=== PATIENT | male | born 1985 | race Two or more races ===

== ENCOUNTER 2019-06-08 10:44 | Emergency (ER) | payer MEDICAID, OTHER ==
[~2019-06-08] VITALS: Ht 167.6 cm; Wt 86.2 kg
[2019-06-08] MEDS ORDERED: cloNIDine HCL 0.1 MG TAB PO ONE (11:00)
[2019-06-08 11:49] VITALS: BP 171/114
== END 2019-06-08 12:08 | disposition home or self-care (01) ==
LOC: ER 10:44
DX: S00.81XA Abrasion of other part of head, initial encounter (principal); I16.0 Hypertensive urgency; I10 Essential (primary) hypertension; W19.XXXA Unspecified fall, initial encounter; Y93.89 Activity, other specified; Y92.89 Other specified places as the place of occurrence of the external cause; Y99.8 Other external cause status
CPT/HCPCS: 70450

== ENCOUNTER 2021-04-21 03:19 | Emergency (ER) | payer MEDICAID ==
[~2021-04-21] VITALS: Ht 175.3 cm; Wt 149.7 kg
[2021-04-21 03:23] VITALS: BP 201/132
== END 2021-04-21 03:37 | disposition home or self-care (01) ==
LOC: EDBD 03:19 → ER 03:22
DX: R00.2 Palpitations (principal); V43.52XA Car driver injured in collision with other type car in traffic accident, initial encounter; Y93.89 Activity, other specified; Y92.410 Unspecified street and highway as the place of occurrence of the external cause; Y99.8 Other external cause status

== ENCOUNTER 2025-01-08 07:25 | Inpatient (IN) | payer MEDICAID ==
[~2025-01-08] VITALS: Ht 167.6 cm; Wt 89.5 kg
--- NOTE | 2025-01-08 07:35 | ECG ---
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
--- NOTE | 2025-01-08 07:36 | ED.PDOC ---
HPI (NEURO) HPI Comments 39 year old male PMHx HTN, thyroid disease, CKD presents to the ED via EMS with a chief complaint of seizure onset today (01/08/25). Per EMS, patient was at dialysis, was 1.5 hours in, had 1.9 L taken out, when he experiencing tonic- clonic seizure, witnessed by staff, assisted to the ground. Upon EMS arrival, patient was post-ictal, BG was 137. Upon ED arrival, patient was answering questions. Patient has dialysis on Wednesday, Wednesday, Wednesday, missed last 2 sessions. Patient also states last meth use was yesterday. Denies fever, chills, head injury, nausea, vomiting, diarrhea, abdominal pain, chest pain, shortness of breath. No other symptoms or modifying factors present at this time. Chief Complaint: Seizure Time Seen by MD: 07:30 Primary Care Provider: NONE Reviewed Notes: Medications, Allergies Information Source: Patient, Emergency Med Personnel Mode of Arrival: EMS Severity: Moderate Timing: Minutes Duration: Since onset Prehospital treatment: None Seizure Quality: Tonic-clonic Seizure Location: Generalized Onset: At rest Circumstances: Spontaneous Symptoms: Other History of: Hypertension Modifying factors: Nothing Associated Signs and Symptoms: Other Past Medical History PAST MEDICAL HISTORY: CKF, HTN, Thyroid Surgical History (Other): dialysis shunt Family History Family History: No family hx of Cancer, No family hx of DM, Family hx of heart yvrose Social History Smoker: Cigarettes Alcohol: Occasionally Drugs: Cocaine, Heroin, Marijuana, Methamphetamine Lives In: Home Constitutional: denies: chills, diaphoresis, fatigue, fever, malaise, sweats, weakness, others EENTM: denies: blurred vision, double vision, ear bleeding, ear discharge, ear drainage, ear pain, ear ringing, eye pain, eye redness, hearing loss, mouth pain, mouth swelling, nasal discharge, nose bleeding, nose congestion, nose pain, photophobia, tearing, throat pain, throat swelling, voice changes, others Respiratory: denies: cough, hemoptysis, orthopnea, SOB at rest, shortness of breath, SOB with excertion, stridor, wheezing, others Cardiovascular: denies: chest pain, dizzy spells, diaphoresis, Dyspnea on exertion, edema, irregular heart beat, left arm pain, lightheadedness, palpitations, PND, syncope, others Gastrointestinal: denies: abdomen distended, abdominal pain, blood streaked bowels, constipated, diarrhea, dysphagia, difficulty swallowing, hematemesis, melena, nausea, poor appetite, poor fluid intake, rectal bleeding, rectal pain, vomiting, others Genitourinary: denies: burning, dysuria, flank pain, frequency, hematuria, incontinence, penile discharge, penile sore, pain, testicle pain, testicle swelling, urgency, others Neurological: reports: seizure; denies: dizziness, fainting, headache, left sided numbness, left sided weakness, numbness, paresthesia, pre-existing deficit, right sided numbness, right sided weakness, speech problems, tingling, tremors, weakness, others Musculoskeletal: denies: back pain, gout, joint pain, joint swelling, muscle pain, muscle stiffness, neck pain, others Integumetry: denies: bruises, change in color, change in hair/nails, dryness, laceration, lesions, lumps, rash, wounds, others Allergic/Immunocompromised: denies: Difficulty Healing, Frequent Infections, Hives, Itching, others Hematologic/Lymphatic: denies: anemia, blood clots, easy bleeding, easy bruising, swollen glands, others Endocrine: denies: excessive hunger, excessive sweating, excessive thirst, excessive urination, flushing, intolerance to cold, intolerance to heat, unexplained weight gain, unexplained weight loss, others Psychiatric: denies: anxiety, bipolar disorder, depression, hopeless, panic disorder, schizophrenia, sleepless, suicidal, others All Other Systems: Reviewed and Negative Physical Exam General Appearance: Moderate Distress HEENT: Pale Conjuntivae (L), Pale Conjuntivae (R), Pharynx Normal, TMs Normal Neck: Full Range of Motion, Non-Tender, Normal, Normal Inspection Respiratory: Chest Non-Tender, Lungs Clear, No Accessory Muscle Use, No Respiratory Distress, Normal Breath Sounds Cardiovascular: No Edema, No JVD, No Murmur, No Gallop, Normal Peripheral Pulses, Regular Rate/Rhythm Breast Exam: Deferred Gastrointestinal: No Organomegaly, Non Tender, No Pulsatile Mass, Normal Bowel Sounds, Soft Genitalia: Deferred Pelvic: Deferred Rectal: Deferred Extremities: No calf tenderness, Normal capillary refill, No pedal edema, Other (THE PATIENT HAS A FISTULA TO THE RIGHT UPPER EXTREMITY) Musculoskeletal : Apperance: Normal Neurologic: Alert, 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 Was a procedure done?: No Differential Diagnosis (SZ) Seizure: CVA/TIA, Syncope, Other (NEW ONSET SEIZURE) X-Ray, Labs, Meds, VS Vital Signs Date Time Temp Pulse Resp B/P (MAP) Pulse Ox O2 Delivery O2 Flow Rate FiO2 01/08/25 08:05 97.8 99 21 187/115 (139) 96 97.8 01/08/25 08:05 Room Air* 0 21 01/08/25 08:00 101 01/08/25 07:37 109 01/08/25 07:30 109 01/08/25 07:28 98.9 116 16 175/126 95 98.9 Lab Test 01/08/25 08:16 Range/Units White Blood Count 5.6 4.4-10.8 10^3/uL Red Blood Count 3.28 L 4.5-5.90 10^6/uL Hemoglobin 10.9 L 13.5-17.5 g/dL Hematocrit 30.9 L 41.0-53.0 % Mean Corpuscular Volume 94.3 80.0-100.0 fL Mean Corpuscular Hemoglobin 33.1 H 28.0-32.0 pg Mean Corpuscular Hemoglobin Concent 35.1 32.0-36.0 g/dL Red Cell Distribution Width 13.9 11.8-14.3 % Platelet Count 161 140-450 10^3/uL Mean Platelet Volume 7.6 6.9-10.8 fL Neutrophils (%) (Auto) 83.6 H 37.0-80.0 % Lymphocytes (%) (Auto) 9.1 L 10.0-50.0 % Monocytes (%) (Auto) 5.3 0.0-12.0 % Eosinophils (%) (Auto) 1.2 0.0-7.0 % Basophils (%) (Auto) 0.8 0.0-2.0 % Neutrophils # (Auto) 4.7 1.6-8.6 10 ^3/uL Lymphocytes # (Auto) 0.5 0.4-5.4 10 ^3/uL Monocytes # (Auto) 0.3 0-1.3 10 ^3/uL Eosinophils # (Auto) 0.1 0-0.8 10 ^3/uL Basophils # (Auto) 0 0-0.2 10 ^3/uL Nucleated Red Blood Cells 0.0 % Sodium Level 136 136-145 mmol/L Potassium Level 4.1 3.5-5.1 mmol/L Chloride Level 93 L 98-107 mmol/L Carbon Dioxide Level 30 20-31 mmol/L Anion Gap 13 5-15 Blood Urea Nitrogen 48 H 9-23 mg/dL Creatinine 10.14 *H 0.700-1.30 mg/dL Glomerular Filtration Rate Calc 6 >90 mL/min BUN/Creatinine Ratio 4.7 L 10.0-20.0 Serum Glucose 123 H 74-106 mg/dL Calcium Level 8.0 L 8.7-10.4 mg/dL PROCEDURE(s): HWOCT - HEAD WITHOUT CONTRAST Indeterminate calcifications and soft-tissue swelling in the left parietal soft- tissue. IMPRESSION: No acute intracranial abnormality. Radiation optimization: All CT scans at this facility use at least one of these dose optimization techniques: automated exposure control mA and/or kV adjustment per patient size (includes targeted exams where dose is matched to c linical indication) or iterative reconstruction. HEP-LOCK WAS ESTABLISHED. THE PATIENT HAS SEIZURE PRECAUTIONS PLACED. THE PATIENT HAS NOT HAD A SEIZURE HERE IN THE EMERGENCY DEPARTMENT'S THE PATIENT'S CBC SHOWS ANEMIA WITH A HEMOGLOBIN OF 10.9 AND HEMATOCRIT OF 30.9 THE BUN IS 48 AND THE CREATININE IS 10.14 THE PATIENT'S POTASSIUM IS WITHIN NORMAL RANGE At this time, the patient will be admitted with a diagnosis of new onset seizures as well as ESRD on dialysis Images Reviewed?: Images reviewed and evaluated by me Time of 1ST Reevaluation: 08:00 Reevaluation 1ST: Unchanged Patient Education/Counseling: Diagnosis, Treatment, Prognosis Family Education/Counseling: No Family Present Departure 1 Departure Time of Disposition: 10:22 Impression: Primary Impression: New onset seizure Additional Impressions: Methamphetamine abuse ESRD on dialysis Disposition: 09 ADMITTED INPATIENT Admit to: Tele Condition: Fair Critical Care Note Critical Care Time?: Yes (45 min-critical care time only) Stability Stability form required: Yes Unstable for transfer: Telemetry monitoring (Telemetry monitoring required), ED Physician Assesment (Clinical assesment) Heart Score Heart Score: Heart Score Response (Comments) Value History Slightly Suspicious 0 EKG Normal 0 Age <45 0 Risk Factors No known risk factors 0 Troponin Normal limit 0 Total 0 I personally scribed for AYESHA BEGUM MD ([email or web address]) on 01/08/25 at 07:36. Electronically submitted by Claire Kessler ([email or web address]). I personally scribed for AYESHA BEGUM MD ([email or web address]) on 01/08/25 at 07:37. Electronically submitted by Claire Kessler ([email or web address]). I personally scribed for AYESHA BEGUM MD ([email or web address]) on 01/08/25 at 08:29. Electronically submitted by Claire Kessler ([email or web address]). AYESHA BEGUM MD Jan 08, 2025 07:36
--- NOTE | 2025-01-08 08:23 | DVH ---
EXAM: CT HEAD WITHOUT CONTRAST INDICATION: seizure TECHNIQUE: CT of the head without intravenous contrast. Radiation Dose : 1. Head: CT Dose: CTDI volume is 66.32 mGy. Dose-length product is 1306.58 mGy*cm The dose indicators for CT are the volume Computed Tomography (CT) Dose Index (CTDIvol) and the Dose Length Product (DLP), and are measured in units of mGy and mGy-cm, respectively. These indicators are not patient dose, but values generated from the CT scanner acquisition factors. The report includes radiation exposure data for exposures received during this examination. COMPARISON: None FINDINGS: There is no evidence of acute intracranial hemorrhage, extra-axial collection, mass effect, midline s hift, herniation or hydrocephalus. The ventricles, sulci and cisterns are age appropriate. The martinez-white differentiation is intact. Mild symmetrical atrophy in the bilateral anterior temporal lobe; nonspecific. Mucosal opacification of the paranasal sinuses. Indeterminate calcifications and soft-tissue swelling in the left parietal soft-tissue. IMPRESSION: No acute intracranial abnormality. Radiation optimization: All CT scans at this facility use at least one of these dose optimization jeannie hniques: automated exposure control mA and/or kV adjustment per patient size (includes targeted exam s where dose is matched to clinical indication) or iterative reconstruction.
[2025-01-08 08:29] LABS: Hematocrit 30.9 % (41.0-53.0); Hemoglobin 10.9 g/dL (13.5-17.5); Mean Corpuscular Hemoglobin 33.1 pg (28.0-32.0); Mean Corpuscular Volume 94.3 fL (80.0-100.0); Nucleated Red Blood Cells % 0.0 %
[2025-01-08 08:33] LABS: Potassium 4.1 mmol/L (3.5-5.1)
[2025-01-08 08:35] LABS: Anion Gap 13 (5-15); Carbon Dioxide 30 mmol/L (20-31)
[2025-01-08 08:40] LABS: BUN/Creatinine Ratio 4.7 (10.0-20.0)
[2025-01-08 08:41] LABS: Chloride 93 mmol/L (98-107); Glucose 123 mg/dL (74-106); Sodium 136 mmol/L (136-145)
[2025-01-08 08:42] LABS: Blood Urea Nitrogen 48 mg/dL (9-23); Calcium 8.0 mg/dL (8.7-10.4)
--- NOTE | 2025-01-08 10:41 | DVHHP2 ---
History of Present Illness Reason for Visit: Seizure History of Present Illness The patient is a 39-year-old male with past medical history of hypertension, thyroid disease, and end-stage renal disease on hemodialysis who presented to [facility] ED for evaluation of new onset of seizures activity at dialysis center. Patient had 1.9 L taking out and suddenly experiencing tonic- clonic seizure witnessed by staff, assisted to the ground, so EMS were called. Patient was seen and evaluated in the ED, laboratory data shows WBC 5.6, hemoglobin 10.9, hematocrit 30.9, platelets 161, sodium 136, potassium 4.1, BUN 48, creatinine 10.14, glucose 123, calcium 8.0, blood pressure 187/115, heart rate 98, temperature 97.8 F, O2 saturation 96% on room air. Head CT showed no acute intracranial abnormality. Please see medication orders section in the computer. On my assessment, patient denies chest pain, no headache, dizziness, diaphoresis, shortness of breaths, no abdominal pain, diarrhea, nausea, vomiting, fever, chills. Patient was admitted for further evaluation and medical management. Past Medical History ESRD, HTN, Thyroid Past Surgical History Dialysis shunt Past Social History Patient lives at home, smokes cigarettes, drinks alcohol occasionally, uses cocaine, heroin, marijuana, and methamphetamine. Review of Systems Constitutional: No: Fever, Chills, Sweats, Weakness, Malaise, Other Eyes: No: Pain, Vision change, Conjunctivae inflammation, Eyelid inflammation, Other, Redness ENT: No: Ear pain, Ear discharge, Nose pain, Nose discharge, Nose congestion, Mouth pain, Mouth swelling, Throat pain, Throat swelling, Other Respiratory: No: Cough, Dry, Shortness of breath, SOB with excertion, Wheezing, Hemoptysis, Pleuritic Pain, Sputum, Wheezing, Other Cardiovascular: No: Chest Pain, Palpitations, Orthopnea, Paroxysmal Noc. Dyspnea, Edema, Lt Headedness, Other Gastrointestinal: No: Nausea, Vomiting, Abdominal Pain, Diarrhea, Constipation, Melena, Hematochezia, Other Genitourinary: No Dysuria, No Frequency, No Incontinence, No Hematuria, No Retention; Other (Dialysis shunt right upper) Musculoskeletal: No: other, neck pain, shoulder pain, arm pain, back pain, hand pain, leg pain, foot pain Skin: No: Rash, Lesions, Jaundice, Bruising, Other Neurological: No: Weakness, Numbness, Incoordination, Change in speech, Confusion, Seizures, Other Allergies: Coded Allergies: NO KNOWN ALLERGIES (Unverified , 06/08/19) Medications Current Medications Medications Dose Ordered Sig/Roxie Route Start Time Stop Time Status Last Admin Dose Admin Sevelamer HCl 800 mg TIDWM PO 01/08/25 12:00 UNV Multivit/Ca Carb/ B Cmplx/FA/Prenat 1 tab DAILY PO 01/09/25 10:00 UNV Exam Vital Signs Vital Signs Date Time Temp Pulse Resp B/P (MAP) Pulse Ox O2 Delivery O2 Flow Rate FiO2 01/08/25 08:05 97.8 99 21 187/115 (139) 96 97.8 01/08/25 08:05 Room Air* 0 21 General Appearance: Alert, Oriented X3, Cooperative, No acute distress HEENT: Atraumatic, PERRLA, EOMI, Mucous membr. moist/pink Respiratory: Normal air movement Cardiovascular: Regular rate, Normal S1, Normal S2, No murmurs Abdominal: Normal bowel sounds, Soft, No tenderness, No hepatospenomegaly, No masses Extremities: No clubbing, No cyanosis, No edema, Normal pulses, No tenderness/swelling Skin: No rashes, No breakdown, No significant lesion Neuro: Normal gait, Normal speech, Strength at 5/5 X4 ext, Normal tone, Sensation intact, Cranial nerves 3-12 NL, Reflexes 2+ Psych/Mental Status: Mental status NL, Mood NL Labs/Xrays Labs Test 01/08/25 08:16 Range/Units White Blood Count 5.6 4.4-10.8 10^3/uL Red Blood Count 3.28 L 4.5-5.90 10^6/uL Hemoglobin 10.9 L 13.5-17.5 g/dL Hematocrit 30.9 L 41.0-53.0 % Mean Corpuscular Volume 94.3 80.0-100.0 fL Mean Corpuscular Hemoglobin 33.1 H 28.0-32.0 pg Mean Corpuscular Hemoglobin Concent 35.1 32.0-36.0 g/dL Red Cell Distribution Width 13.9 11.8-14.3 % Platelet Count 161 140-450 10^3/uL Mean Platelet Volume 7.6 6.9-10.8 fL Neutrophils (%) (Auto) 83.6 H 37.0-80.0 % Lymphocytes (%) (Auto) 9.1 L 10.0-50.0 % Monocytes (%) (Auto) 5.3 0.0-12.0 % Eosinophils (%) (Auto) 1.2 0.0-7.0 % Basophils (%) (Auto) 0.8 0.0-2.0 % Neutrophils # (Auto) 4.7 1.6-8.6 10 ^3/uL Lymphocytes # (Auto) 0.5 0.4-5.4 10 ^3/uL Monocytes # (Auto) 0.3 0-1.3 10 ^3/uL Eosinophils # (Auto) 0.1 0-0.8 10 ^3/uL Basophils # (Auto) 0 0-0.2 10 ^3/uL Nucleated Red Blood Cells 0.0 % Sodium Level 136 136-145 mmol/L Potassium Level 4.1 3.5-5.1 mmol/L Chloride Level 93 L 98-107 mmol/L Carbon Dioxide Level 30 20-31 mmol/L Anion Gap 13 5-15 Blood Urea Nitrogen 48 H 9-23 mg/dL Creatinine 10.14 *H 0.700-1.30 mg/dL Glomerular Filtration Rate Calc 6 >90 mL/min BUN/Creatinine Ratio 4.7 L 10.0-20.0 Serum Glucose 123 H 74-106 mg/dL Calcium Level 8.0 L 8.7-10.4 mg/dL PATIENT: EDISON MURRAY ACCT: [id number] UNIT: [id number] : 1985 LOC: ER ROOM / BED: / AGE / SEX: 39 / M ADM STATUS: REG ER SERVICE [id number] ORDERING PHYSICIAN: AYESHA BEGUM MD PROCEDURE(s): HWOCT - HEAD WITHOUT CONTRAST REASON: seizure ORDER NUMBER(s): [id number], ACCESSION NUMBER(s): [id number] EXAM: CT HEAD WITHOUT CONTRAST INDICATION: seizure TECHNIQUE: CT of the head without intravenous contrast. Radiation Dose: 1. Head: CT Dose: CTDI volume is 66.32 mGy. Dose-length product is 1306.58 mGy*cm The dose indicators for CT are the volume Computed Tomography (CT) Dose Index (CTDIvol) and the Dose Length Product (DLP), and are measured in units of mGy and mGy-cm, respectively. These indicators are not patient dose, but values generated from the CT scanner acquisition factors. The report includes radiation exposure data for exposures received during this examination. COMPARISON: None FINDINGS: There is no evidence of acute intracranial hemorrhage, extra-axial collection, mass effect, midline shift, herniation or hydrocephalus. The ventricles, sulci and cisterns are age appropriate. The martinez-white differentiation is intact. Mild symmetrical atrophy in the bilateral anterior temporal lobe; nonspecific. Mucosal opacification of the paranasal sinuses. Indeterminate calcifications and soft-tissue swelling in the left parietal soft- tissue. IMPRESSION: No acute intracranial abnormality. SEPSIS Sepsis Screen Date sepsis recognized/suspect: Jan 08, 2025 Time Sepsis recognized/suspect: 08 Recent Procedure: No On Antibiotic Therapy: No Respiratory Rate >20: Yes Heart Rate >90: No Temp<36 C (96.8 F) or >38.3 C: No SBP <90 or MAP <65 mmHG: No New Acute Mental Status Change: No Is the patient on CPAP, BIPAP,: No Physician Orders Pulse Oximetry (01/08/25 07:33) Blood Pressure (01/08/25 07:33) Drug Screen (01/08/25 07:33) Heplock Iv (01/08/25 07:33) Seizure Precautions (01/08/25 07:33) Test Director (01/08/25 07:33) Head Without Contrast (01/08/25 07:33) * Neurology Consult (01/08/25 10:34) *Dr. Senia Marrufo -Da Eul[place] (01/08/25 10:34) Sevelamer (Renagel) (01/08/25 12:00) B-Complex W/ C & Folic Tablet (Nephro-Vi (01/09/25 10:00) Calcium Acetate Capsule (Phoslo Capsule) (01/08/25 10:45) Calcium Acetate Capsule (Phoslo Capsule) (01/08/25 12:00) Admit (01/08/25 10:34) Allergies (01/08/25 10:34) Code Status (01/08/25 10:34) Renal Standard(2gna,3gk,Lopho) (01/08/25 Lunch) Sodium Chloride Lock (Saline Lock Ns) (01/08/25 14:00) Oxygen Per Hour (01/08/25 10:34) Hydrocodone-Acet 5/325mg Tab (Hall 5/32 (01/08/25 10:45) Ondansetron Hcl (Zofran) (01/08/25 10:45) Docusate Sodium Capsule (Colace Capsule) (01/08/25 10:45) Fall Risk Precautions In Place QSHIFT (01/08/25 10:34) Complete Blood Count (01/09/25 04:00) Comprehensive Metabolic Panel (01/09/25 04:00) Condition: Serious (01/08/25 10:34) Acetaminophen Tablet (Tylenol Tablet) (01/08/25 10:45) Maintain Bed Rest (01/08/25 10:34) Sequential Compression Device (01/08/25 ) Nitroglycerin Sublingual (Ntrostat Subli (01/08/25 10:45) Morphine Sulfate Injection (01/08/25 10:45) Stat Ekg For Chest Pain (01/08/25 10:34) Notify Md Of Changes From Base (01/08/25 10:34) Parking Enforcement Manager For 24 Hours (01/08/25 10:34) Emergency Dysrhythmia Protocol (01/08/25 10:34) Rhythm Strips Once Every Shift (01/08/25 10:34) Oxygen By Nasal Cannula (01/08/25 10:34) Vital Signs Date Time Temp Pulse Resp B/P (MAP) Pulse Ox O2 Delivery O2 Flow Rate FiO2 01/08/25 08:05 97.8 99 21 187/115 (139) 96 97.8 01/08/25 08:05 Room Air* 0 21 01/08/25 08:00 101 01/08/25 07:37 109 01/08/25 07:30 109 01/08/25 07:28 98.9 116 16 175/126 95 98.9 Laboratory Tests Test 01/08/25 08:16 White Blood Count 5.6 10^3/uL (4.4-10.8) Assessment/Plan Assessment/Plan New onset seizure Hypertensive urgency Methamphetamine abuse End-stage renal disease on hemodialysis Plan 1. Admit to telemetry unit 2. Breathing treatment 3. Pain control management 4. Management of fluids and electrolytes 5. Consultation for Neurology/Nephrology 6. Diagnostic tests head CT 7. DVT prophylaxis -on SCDs 8. Repeat labs CBC, CMP in a.m. 9. Continue with current medical management 10. Treatment plan discussed with patient and RN. Patient verbalized understanding. Plan discussed with: Patient, Other (RN) My Orders Orders - DARSHAN NUÑEZ DNP Procedure Category Date Status Time * Neurology Consult CONS 01/08/25 Transmitted 10:34 *Dr. [facility] -Da CONS 01/08/25 Transmitted Eulalia 10:34 Sevelamer (Renagel) PHA 01/08/25 Logged 12:00 B-Complex W/ C & PHA 01/09/25 Logged Folic Tablet 10:00 Calcium Acetate PHA 01/08/25 Logged Capsule (Phoslo 10:45 Calcium Acetate PHA 01/08/25 Transmitted Capsule (Phoslo 12:00 Admit ADMIT 01/08/25 Transmitted 10:34 Allergies OFELIA 01/08/25 In Process 10:34 Code Status CODE 01/08/25 Transmitted 10:34 Renal DIET 01/08/25 Transmitted Standard(2gna,3gk,Lopho) Lunch Sodium Chloride Lock PHA 01/08/25 Transmitted (Saline Lock Ns) 14:00 Oxygen Per Hour RT 01/08/25 Transmitted 10:34 Hydrocodone-Acet PHA 01/08/25 Transmitted 5/325mg Tab (Hall 10:45 Ondansetron Hcl PHA 01/08/25 Transmitted (Zofran) 10:45 Docusate Sodium PHA 01/08/25 Transmitted Capsule (Colace 10:45 Fall Risk Precautions OFELIA 01/08/[address] 10:34 Complete Blood Count LAB 01/09/25 Verified 04:00 Comprehensive LAB 01/09/25 Verified Metabolic Panel 04:00 Condition: Serious OFELIA 01/08/25 In Process 10:34 Acetaminophen Tablet PHA 01/08/25 Transmitted (Tylenol Tablet) 10:45 Maintain Bed Rest OFELIA 01/08/25 In Process 10:34 Sequential OFELIA 01/08/25 In Process Compression Device Nitroglycerin PHA 01/08/25 Transmitted Sublingual (Ntrostat 10:45 Morphine Sulfate PHA 01/08/25 Transmitted Injection 10:45 Stat Ekg For Chest OFELIA 01/08/25 In Process Pain 10:34 Notify Md Of Changes OFELIA 01/08/25 In Process From Base 10:34 Parking Enforcement Manager For OFELIA 01/08/25 In Process 24 Hours 10:34 Emergency Dysrhythmia OFELIA 01/08/25 In Process Protocol 10:34 Rhythm Strips Once OFELIA 01/08/25 In Process Every Shift 10:34 Oxygen By Nasal RT 01/08/25 Transmitted Cannula 10:34 Problem List: (1) New onset seizure (2) Hypertensive urgency (3) Methamphetamine abuse (4) End-stage renal disease on hemodialysis Date of Service: Jan 08, 2025 Billing Provider: DARSHAN NUÑEZ DNP Common Visit Codes: [id number] INP/OBS CARE (HIGH) DARSHAN NUÑEZ DNP Jan 08, 2025 10:41
[2025-01-08] MEDS ORDERED: HYDROcodone-ACET 5/325MG TAB PO PRN ×2 (10:45→11:00)
[2025-01-08] MEDS ORDERED: NITROGLYCERIN 0.4 MG SL TAB SL PRN ×2 (10:45→11:00)
[2025-01-08] MEDS ORDERED: ONDANSETRON HCL 4 MG/2 ML VIAL IV PRN ×2 (10:45→11:00)
[2025-01-08] MEDS ORDERED: DOCUSATE SOD 100 MG CAP PO PRN ×2 (10:45→11:00)
[2025-01-08] MEDS ORDERED: ACETAMINOPHEN 325 MG TAB PO PRN ×2 (10:45→11:00)
[2025-01-08] MEDS ORDERED: CALCIUM ACETATE 667 MG CAP PO ONE (10:45)
[2025-01-08] MEDS ORDERED: MORPHINE SULFATE INJ 2 MG/ml SYRG IV PRN ×2 (10:45→11:00)
[2025-01-08] MEDS ORDERED: SEVELAMER 800 MG TAB PO SCH (12:00)
[2025-01-08] MEDS ORDERED: CALCIUM ACETATE 667 MG CAP PO SCH (12:00)
[2025-01-08] MEDS: CALCIUM ACETATE 667 MG CAP PO ONE (12:22)
[2025-01-08] MEDS: SEVELAMER 800 MG TAB PO SCH (12:23)
--- NOTE | 2025-01-08 13:50 | DVHINCON2 ---
Date of service: Jan 08, 2025 Referring Physician Colleen Reason for Consultation Seizure History of Present Illness Mr. Salamanca is a 39 years old right-handed gentleman with a history of hypertension, end-stage kidney failure on hemodialysis, he was brought to the [facility] on 01/08/2025 with a chief company of seizure activity. At this time, he is alert and fully oriented, he provided the following history He remembers going through hemodialysis with muscle twitching without confusion/ALOC, but the next memory was waking up in the emergency room. According to the ER documentation, the when he was about one point hours in his hemodialysis, he had tonic-clonic activity witnessed by his staff, and the patient woke up after the abnormal activity was over. There was no associated biting or incontinence, the patient has never had similar problems previously Once in 11/2024, the patient has had similar muscle twitching without ALOC He has no history of olfactory hallucination He has no history of traumatic brain injury, intracranial infection or family history of seizure disorder. He denies sleep deprivation or acute medical illness WBC/HB/PLT/MCV, 01/08/2025: 5.6/10.9/161/94.3 BUN/CR, 01/08/2025: 48/10.14 GFR, 01/08/2025: Six TSH, 01/08/25: 0.6 CT head, 01/08/2025: No acute intracranial abnormality Past Medical History Hypertension, chronic kidney failure on hemodialysis Past Surgical History Dialysis shunt Family History He denies major medical problems Social History He smokes tobacco, denies alcohol abuse, he uses street methamphetamine. He is not licensed to drive Allergies: Coded Allergies: NO KNOWN ALLERGIES (Unverified , 06/08/19) Current Medications Current Medications Medications (Trade) Dose Ordered Sig/Roxie Route PRN Reason Start Time Stop Time Status Last Admin Sevelamer HCl (Renagel) 800 mg TIDWM PO 01/08/25 12:00 01/08/25 10:54 DC Multivit/Ca Carb/ B Cmplx/FA/Prenat (Nephro-Daryl Tablet) 1 tab DAILY PO 01/09/25 10:00 01/08/25 10:54 DC Calcium Acetate (Phoslo Capsule) 667 mg TIDWMEALS PO 01/08/25 12:00 01/08/25 10:54 DC Sodium Chloride (Saline Lock Ns) 10 ml Q8HR IV 01/08/25 14:00 01/08/25 10:54 DC Acetaminophen/ Hydrocodone Bitart ([place] 5/325MG Tab) 1 tab Q4HP PRN PO MODERATE PAIN (4-6 PAIN SCALE) 01/08/25 10:45 01/08/25 10:54 DC Ondansetron HCl (Zofran) 4 mg Q4HP PRN IV NAUSEA / VOMITING 01/08/25 10:45 01/08/25 10:54 DC Docusate Sodium (Colace Capsule) 100 mg BIDPRN PRN PO FOR CONSTIPATION 01/08/25 10:45 01/08/25 10:54 DC Acetaminophen (Tylenol Tablet) 650 mg Q6HP PRN PO PAIN SCALE 1-3 OR TEMP>100.4 01/08/25 10:45 01/08/25 10:54 DC Nitroglycerin (Ntrostat Sublingual) 0.4 mg Q5MINP PRN SL FOR CHEST PAIN 01/08/25 10:45 01/08/25 10:54 DC Morphine Sulfate 2 mg Q30M PRN IV FOR CHEST PAIN 01/08/25 10:45 01/08/25 10:54 DC Amlodipine Besylate (Norvasc Tablet) 10 mg DAILY PO 01/09/25 10:00 01/08/25 10:54 DC Clonidine HCl (Catapres Tablet) 0.1 mg Q4HP PRN PO SBP>150 01/08/25 10:45 01/08/25 10:54 DC Carvedilol (Coreg Tablet) 12.5 mg Q12HR PO 01/08/25 22:00 01/08/25 10:54 DC Sodium Chloride (Saline Lock Ns) 10 ml Q8HR IV 01/08/25 14:00 Ondansetron HCl (Zofran) 4 mg Q4HP PRN IV NAUSEA / VOMITING 01/08/25 11:00 Morphine Sulfate 2 mg Q30M PRN IV FOR CHEST PAIN 01/08/25 11:00 Sevelamer HCl (Renagel) 800 mg TIDWM PO 01/08/25 12:00 01/08/25 12:23 Multivit/Ca Carb/ B Cmplx/FA/Prenat (Nephro-Daryl Tablet) 1 tab DAILY PO 01/09/25 10:00 Calcium Acetate (Phoslo Capsule) 667 mg TIDWMEALS PO 01/08/25 18:00 Acetaminophen/ Hydrocodone Bitart ([place] 5/325MG Tab) 1 tab Q4HP PRN PO MODERATE PAIN (4-6 PAIN SCALE) 01/08/25 11:00 Docusate Sodium (Colace Capsule) 100 mg BIDPRN PRN PO FOR CONSTIPATION 01/08/25 11:00 Acetaminophen (Tylenol Tablet) 650 mg Q6HP PRN PO PAIN SCALE 1-3 OR TEMP>100.4 01/08/25 11:00 Nitroglycerin (Ntrostat Sublingual) 0.4 mg Q5MINP PRN SL FOR CHEST PAIN 01/08/25 11:00 Amlodipine Besylate (Norvasc Tablet) 10 mg DAILY PO 01/09/25 10:00 Clonidine HCl (Catapres Tablet) 0.1 mg Q4HP PRN PO SBP>150 01/08/25 11:00 Carvedilol (Coreg Tablet) 12.5 mg Q12HR PO 01/08/25 22:00 Review of Systems As above, the other systems are negative Vital Signs Vital Signs Date Time Temp Pulse Resp B/P (MAP) Pulse Ox O2 Delivery O2 Flow Rate FiO2 01/08/25 12:23 191/120 01/08/25 08:05 97.8 99 21 96 97.8 01/08/25 08:05 Room Air* 0 21 Physical Exam GENERAL EXAM: General: the patient is well developed and nourished. No acute distress. HEENT: Normocephalic, neck is supple, no carotid bruits. No mass. RESPIRATORY: Normal respiratory effort with symmetrical lung expansion. Lungs clear to auscultation. CARDIOVASCULAR: Regular rate and rhythm with no murmurs. S1, S2. ABDOMEN: Soft, nontender, normal bowel sound NEUROLOGICAL: MENTAL STATUS: Awake and alert. Oriented to person, place, time and general circumstances. Able to give personal history SPEECH, LANGUAGE, HIGHER CORTICAL FUNCTION: no aphasia or dysathria. CRANIAL NERVES: #2. Retinal background was uniformly pink in appearance. #3,4,6: Pupils are equal, round and reactive. EOMs full and conjugate. No nystagmus. #5: Facial sensation intact in all three divisions bilaterally. Mandibular strength intact. #7: Facial muscles symmetrical and strength intact. #8: Hearing grossly normal to voice. #9,10: Uvula and soft palate rise in the midline. Swallow and voice are normal. #11: Trapezius and sternomastoid strength intact bilaterally. #12: Tongue midline. No fasciculations or atrophy. SENSATION: Sensation to touch and pinprick is normal. MOTOR: Normal tone in the upper and lower extremity. Normal muscle bulk. No fasciculations. No abnormal movements or posturing. Muscle strength of the major groups in the upper extremities is 5/5. Muscle strength of the major groups in the lower extremities is 5/5. REFLEXES: Deep tendon reflexes are symmetrical. No pathological reflexes. CEREBELLAR/COORDINATION: Finger to nose and heel to rangel are normal bilaterally. GAIT/STATION: deferred Labs/Diagnostic Data Labs Test 01/08/25 08:16 Range/Units White Blood Count 5.6 4.4-10.8 10^3/uL Red Blood Count 3.28 L 4.5-5.90 10^6/uL Hemoglobin 10.9 L 13.5-17.5 g/dL Hematocrit 30.9 L 41.0-53.0 % Mean Corpuscular Volume 94.3 80.0-100.0 fL Mean Corpuscular Hemoglobin 33.1 H 28.0-32.0 pg Mean Corpuscular Hemoglobin Concent 35.1 32.0-36.0 g/dL Red Cell Distribution Width 13.9 11.8-14.3 % Platelet Count 161 140-450 10^3/uL Mean Platelet Volume 7.6 6.9-10.8 fL Neutrophils (%) (Auto) 83.6 H 37.0-80.0 % Lymphocytes (%) (Auto) 9.1 L 10.0-50.0 % Monocytes (%) (Auto) 5.3 0.0-12.0 % Eosinophils (%) (Auto) 1.2 0.0-7.0 % Basophils (%) (Auto) 0.8 0.0-2.0 % Neutrophils # (Auto) 4.7 1.6-8.6 10 ^3/uL Lymphocytes # (Auto) 0.5 0.4-5.4 10 ^3/uL Monocytes # (Auto) 0.3 0-1.3 10 ^3/uL Eosinophils # (Auto) 0.1 0-0.8 10 ^3/uL Basophils # (Auto) 0 0-0.2 10 ^3/uL Nucleated Red Blood Cells 0.0 % Sodium Level 136 136-145 mmol/L Potassium Level 4.1 3.5-5.1 mmol/L Chloride Level 93 L 98-107 mmol/L Carbon Dioxide Level 30 20-31 mmol/L Anion Gap 13 5-15 Blood Urea Nitrogen 48 H 9-23 mg/dL Creatinine 10.14 *H 0.700-1.30 mg/dL Glomerular Filtration Rate Calc 6 >90 mL/min BUN/Creatinine Ratio 4.7 L 10.0-20.0 Serum Glucose 123 H 74-106 mg/dL Calcium Level 8.0 L 8.7-10.4 mg/dL Thyroid Stimulating Hormone (TSH) 0.60 0.55-4.78 uIU/mL Assessment New onset grand mal seizure, etiology unclear Myoclonus jerk, likely related to kidney failure Plan/Recommendation Monitoring Supportive treatment Telemetry EEG MRI head Ativan for seizure breakthrough Seizure preventive treatment is not indicated at this time Seizure related driving restriction discussed Seizure related safety issues discussed Avoid street drug, alcohol More recommendation per clinical course Prognosis: Poor This medical document was created using an electronic medical record system with [employer] computerized dictation system. Although this document has been carefully reviewed, there may still be some phonetic and typographical errors. These areas are purely typographical due to imperfections of the software programs, and do not reflect any compromise in the patient's medical care. Plan discussed with: Patient, Other CARLA MOHR MD Jan 08, 2025 13:50
[2025-01-08] MEDS ORDERED: SODIUM CHLOR 0.9% PF (SALINE LOCK) 10ML VIAL/SYR IV SCH (14:00)
[2025-01-08] MEDS: SODIUM CHLOR 0.9% PF (SALINE LOCK) 10ML VIAL/SYR IV SCH (14:02)
[2025-01-08] MEDS ORDERED: LORazepam 2MG/ML-1ML VIAL IV PRN ×2 (14:30)
--- NOTE | 2025-01-08 16:39 | DVH ---
PROCEDURE: MRI BRAIN HEAD WO CONTRAST Indication: Sz COMPARISON: 01/08/2025 TECHNIQUE: Multiplanar multisequence images of the brain are obtained. FINDINGS: There is no abnormal diffusion restriction. There are moderate periventricular and subcortical white matter T2 and FLAIR hyperintense changes. There is no intracranial hemorrhage. No extra-axial fluid c ollection, mass effect or midline shift. The ventricles are midline and normal in size. The cisterns are patent. Normal intracranial flow voids are preserved. Susceptibility artifact in the left parieta l scalp corresponding to the radiopaque debris/ calcification seen on prior CT. Mastoids demonstrate small bilateral effusions. Ethmoid, right maxillary sinus disease. The visualize d orbits are unremarkable. IMPRESSION: No acute cerebrovascular ischemia. Periventricular and subcortical white matter T2/FLAIR hyperintense changes which can be secondary to demyelinating disease, microvascular ischemic changes, vasculitis, other inflammatory / infectious et iologies. Recommend MRI brain with contrast to evaluate. Paranasal sinus disease.
[2025-01-08] MEDS: CALCIUM ACETATE 667 MG CAP PO SCH (18:16)
--- NOTE | 2025-01-08 20:06 | DVHINCON2 ---
Date of service: Jan 08, [address] Nunez Reason for Consultation ESRD and dialysis management History of Present Illness Lalo Salamanca is a 39-year-old M with a Past Medical History pertinent for Hypertension, ESRD on HD (M/W/F) and Thyroid disease who presented to the [facility] for evaluation of new onset seizures activity at dialysis center. Patient remembers going through hemodialysis with muscle twitching without confusion/ALOC, but the next memory was waking up in the emergency room. 1.9 L was taken out and patient suddenly experienced tonic-clonic seizure witnessed by staff and was assisted to the ground. Patient woke up after the abnormal act ivity was over. No associated biting or incontinence. Patient denies similar problems previously. Reports having similar muscle twitching without ALOC in November. At this time, he is alert and fully oriented. During ED course, labs were remarkable for Hgb 10.9. Platelets 161. Na 136. K 4.1. Creatinine 10.14 with BUN of 48. Calcium 8.0. CT Head reported no acute intracranial abnormality. Patient is under my care outpatient for nephrology and dialysis standpoint. I was asked to consult. Allergies: Coded Allergies: NO KNOWN ALLERGIES (Unverified , 06/08/19) Current Medications Current Medications Medications (Trade) Dose Ordered Sig/Roxie Route PRN Reason Start Time Stop Time Status Last Admin Sevelamer HCl (Renagel) 800 mg TIDWM PO 01/08/25 12:00 01/08/25 10:54 DC Multivit/Ca Carb/ B Cmplx/FA/Prenat (Nephro-Daryl Tablet) 1 tab DAILY PO 01/09/25 10:00 01/08/25 10:54 DC Calcium Acetate (Phoslo Capsule) 667 mg TIDWMEALS PO 01/08/25 12:00 01/08/25 10:54 DC Sodium Chloride (Saline Lock Ns) 10 ml Q8HR IV 01/08/25 14:00 01/08/25 10:54 DC Acetaminophen/ Hydrocodone Bitart ([place] 5/325MG Tab) 1 tab Q4HP PRN PO MODERATE PAIN (4-6 PAIN SCALE) 01/08/25 10:45 01/08/25 10:54 DC Ondansetron HCl (Zofran) 4 mg Q4HP PRN IV NAUSEA / VOMITING 01/08/25 10:45 01/08/25 10:54 DC Docusate Sodium (Colace Capsule) 100 mg BIDPRN PRN PO FOR CONSTIPATION 01/08/25 10:45 01/08/25 10:54 DC Acetaminophen (Tylenol Tablet) 650 mg Q6HP PRN PO PAIN SCALE 1-3 OR TEMP>100.4 01/08/25 10:45 01/08/25 10:54 DC Nitroglycerin (Ntrostat Sublingual) 0.4 mg Q5MINP PRN SL FOR CHEST PAIN 01/08/25 10:45 01/08/25 10:54 DC Morphine Sulfate 2 mg Q30M PRN IV FOR CHEST PAIN 01/08/25 10:45 01/08/25 10:54 DC Amlodipine Besylate (Norvasc Tablet) 10 mg DAILY PO 01/09/25 10:00 01/08/25 10:54 DC Clonidine HCl (Catapres Tablet) 0.1 mg Q4HP PRN PO SBP>150 01/08/25 10:45 01/08/25 10:54 DC Carvedilol (Coreg Tablet) 12.5 mg Q12HR PO 01/08/25 22:00 01/08/25 10:54 DC Sodium Chloride (Saline Lock Ns) 10 ml Q8HR IV 01/08/25 14:00 01/08/25 14:02 Ondansetron HCl (Zofran) 4 mg Q4HP PRN IV NAUSEA / VOMITING 01/08/25 11:00 Morphine Sulfate 2 mg Q30M PRN IV FOR CHEST PAIN 01/08/25 11:00 Sevelamer HCl (Renagel) 800 mg TIDWM PO 01/08/25 12:00 01/08/25 18:15 Multivit/Ca Carb/ B Cmplx/FA/Prenat (Nephro-Daryl Tablet) 1 tab DAILY PO 01/09/25 10:00 Calcium Acetate (Phoslo Capsule) 667 mg TIDWMEALS PO 01/08/25 18:00 01/08/25 18:16 Acetaminophen/ Hydrocodone Bitart ([place] 5/325MG Tab) 1 tab Q4HP PRN PO MODERATE PAIN (4-6 PAIN SCALE) 01/08/25 11:00 Docusate Sodium (Colace Capsule) 100 mg BIDPRN PRN PO FOR CONSTIPATION 01/08/25 11:00 Acetaminophen (Tylenol Tablet) 650 mg Q6HP PRN PO PAIN SCALE 1-3 OR TEMP>100.4 01/08/25 11:00 Nitroglycerin (Ntrostat Sublingual) 0.4 mg Q5MINP PRN SL FOR CHEST PAIN 01/08/25 11:00 Amlodipine Besylate (Norvasc Tablet) 10 mg DAILY PO 01/09/25 10:00 Clonidine HCl (Catapres Tablet) 0.1 mg Q4HP PRN PO SBP>150 01/08/25 11:00 01/08/25 18:16 Carvedilol (Coreg Tablet) 12.5 mg Q12HR PO 01/08/25 22:00 Lorazepam (Ativan Inj) 1 mg ONCE PRN IV MRI 01/08/25 14:30 Lorazepam (Ativan Inj) 1 mg Q5MINP PRN IV SEIZURES 01/08/25 14:30 Review of Systems Constitutional: No: Fever, Chills, Sweats, Weakness, Malaise, Other Respiratory: No: Cough, Dry, Shortness of breath, SOB with excertion, Wheezing, Hemoptysis, Pleuritic Pain, Sputum, Wheezing, Other Cardiovascular: No: Chest Pain, Palpitations, Orthopnea, Paroxysmal Noc. Dyspnea, Edema, Lt Headedness, Other Gastrointestinal: No: Nausea, Vomiting, Abdominal Pain, Diarrhea, Constipation, Melena, Hematochezia, Other Genitourinary: No Dysuria, No Frequency, No Incontinence, No Hematuria, No Retention; Other (Dialysis shunt right upper) Skin: No: Rash, Lesions, Jaundice, Bruising, Other Neurological: Seizures. No: Weakness, Numbness, Incoordination, Change in speech, Confusion Other systems reviewed and negative unless otherwise noted in HPI. H&P Exam Vital Signs/I&O Vital Sign Date Time Temp Pulse Resp B/P (MAP) Pulse Ox O2 Delivery O2 Flow Rate FiO2 01/08/25 18:16 176/113 01/08/25 18:00 83 19 93 01/08/25 08:05 97.8 97.8 01/08/25 08:05 Room Air* 0 21 Physical Exam Vitals and nursing notes reviewed. General Appearance: In no acute distress HEENT: Atraumatic, PERRLA, EOMI, Mucous membr. moist/pink Respiratory: Normal air movement Cardiovascular: Regular rate, Normal S1, Normal S2, No murmurs Abdominal: Normal bowel sounds, Soft, No tenderness, No hepatospenomegaly, No masses Extremities: No clubbing, No cyanosis, No edema, Normal pulses, No tenderness/swelling Skin: No rashes, No breakdown, No significant lesion Neuro: Alert, Oriented X3, Normal speech, Cranial nerves 3-12 NL, Reflexes 2+ Psych/Mental Status: Mental status NL, Mood NL Labs/Diagnostic Data Labs/Diagnostic Data Laboratory Tests Test 01/08/25 08:16 Range/Units White Blood Count 5.6 4.4-10.8 10^3/uL Red Blood Count 3.28 L 4.5-5.90 10^6/uL Hemoglobin 10.9 L 13.5-17.5 g/dL Hematocrit 30.9 L 41.0-53.0 % Mean Corpuscular Volume 94.3 80.0-100.0 fL Mean Corpuscular Hemoglobin 33.1 H 28.0-32.0 pg Mean Corpuscular Hemoglobin Concent 35.1 32.0-36.0 g/dL Red Cell Distribution Width 13.9 11.8-14.3 % Platelet Count 161 140-450 10^3/uL Mean Platelet Volume 7.6 6.9-10.8 fL Neutrophils (%) (Auto) 83.6 H 37.0-80.0 % Lymphocytes (%) (Auto) 9.1 L 10.0-50.0 % Monocytes (%) (Auto) 5.3 0.0-12.0 % Eosinophils (%) (Auto) 1.2 0.0-7.0 % Basophils (%) (Auto) 0.8 0.0-2.0 % Neutrophils # (Auto) 4.7 1.6-8.6 10 ^3/uL Lymphocytes # (Auto) 0.5 0.4-5.4 10 ^3/uL Monocytes # (Auto) 0.3 0-1.3 10 ^3/uL Eosinophils # (Auto) 0.1 0-0.8 10 ^3/uL Basophils # (Auto) 0 0-0.2 10 ^3/uL Nucleated Red Blood Cells 0.0 % Sodium Level 136 136-145 mmol/L Potassium Level 4.1 3.5-5.1 mmol/L Chloride Level 93 L 98-107 mmol/L Carbon Dioxide Level 30 20-31 mmol/L Anion Gap 13 5-15 Blood Urea Nitrogen 48 H 9-23 mg/dL Creatinine 10.14 *H 0.700-1.30 mg/dL Glomerular Filtration Rate Calc 6 >90 mL/min BUN/Creatinine Ratio 4.7 L 10.0-20.0 Serum Glucose 123 H 74-106 mg/dL Calcium Level 8.0 L 8.7-10.4 mg/dL Thyroid Stimulating Hormone (TSH) 0.60 0.55-4.78 uIU/mL Assessment New onset seizure Hypertensive urgency Methamphetamine abuse End-stage renal disease on hemodialysis Plan/Recommendation Agreement with your ongoing assessment and plan of care. Supportive treatment. Neurology consulted. Schedule dialysis tomorrow. Electrolyte replacement prn. Home medications resumed. Renal diet. Avoid illicit drugs, alcohol. Additional plan as per the hospital course. Plan discussed with: Patient, Other (RN) RALETTE ALDANA DO Jan 08, 2025 20:06
[2025-01-08 20:41] VITALS: PULSE 85; RESP 13; O2SAT 94
[2025-01-08] MEDS: CARVEDILOL 12.5 MG TAB PO SCH (21:41)
[2025-01-08] MEDS ORDERED: CARVEDILOL 12.5 MG TAB PO SCH (22:00)
[2025-01-08] MEDS: hydrALAZINE HCL 20 MG/ML VL IV ONE (22:42)
[2025-01-09 05:46] LABS: Alanine Aminotransferase 12 U/L (7-40); Albumin 4.0 g/dL (3.2-4.8); Alkaline Phosphatase 54 U/L (46-116); Anion Gap 15 (5-15); BUN/Creatinine Ratio 4.7 (10.0-20.0); Carbon Dioxide 28 mmol/L (20-31); Glucose 80 mg/dL (74-106); Sodium 137 mmol/L (136-145); Total Protein 6.9 g/dL (5.7-8.2)
[2025-01-09 05:47] LABS: Bilirubin, Total 0.5 mg/dL (0.2-1.0)
[2025-01-09 05:50] LABS: Hematocrit 31.7 % (41.0-53.0); Hemoglobin 11.1 g/dL (13.5-17.5); Mean Corpuscular Hemoglobin 33.4 pg (28.0-32.0); Mean Corpuscular Volume 95.2 fL (80.0-100.0); Nucleated Red Blood Cells % 0.0 %
[2025-01-09 05:55] LABS: Blood Urea Nitrogen 64 mg/dL (9-23); Calcium 7.5 mg/dL (8.7-10.4); Chloride 94 mmol/L (98-107)
[2025-01-09 05:57] LABS: Potassium 5.6 mmol/L (3.5-5.1)
[2025-01-09 08:00] VITALS: PULSE 85; PULSE 89; RESP 13; RESP 15; O2SAT 94; O2SAT 96
--- NOTE | 2025-01-09 08:49 | DVHPN2 ---
Progress Note - Dictate Date Seen: Jan 09, 2025 Medical Necessity Reason Pt with a Central, PICC or Fol: No Subjective Mr. Salamanca is a 39 years old right-handed gentleman with a history of hypertension, end-stage kidney failure on hemodialysis, he was brought to the [facility] on 01/08/2025 with a chief company of seizure activity. I have seen and examined the patient, discussed with his nurse, he is doing fine, alert and fully oriented, no new complaints No seizure activity overnight He is to have hemodialysis today WBC/HB/PLT/MCV, 01/08/2025: 5.6/10.9/161/94.3 BUN/CR, 01/08/2025: 48/10.14 GFR, 01/08/2025: Six TSH, 01/08/25: 0.6 CT head, 01/08/2025: No acute intracranial abnormality MRI head, 01/08/2025: No acute cerebrovascular ischemia. Periventricular and subcortical white matter T2/FLAIR hyperintense changes which can be secondary to demyelinating disease, microvascular ischemic changes, vasculitis, other inflammatory / infectious etiologies. Recommend MRI brain with contrast to evaluate. Paranasal sinus disease. vital signs Vital Sign Date Time Temp Pulse Resp B/P (MAP) Pulse Ox O2 Delivery O2 Flow Rate FiO2 01/09/25 08:00 98.9 89 15 152/103 (119) 96 98.9 01/08/25 20:41 Room Air* 0 21 medications Current Medications Medications Dose Ordered Sig/Roxie Route Start Time Stop Time Status Last Admin Dose Admin Sodium Chloride 10 ml Q8HR IV 01/08/25 14:00 01/09/25 05:22 10 ML Ondansetron HCl 4 mg Q4HP PRN IV 01/08/25 11:00 Morphine Sulfate 2 mg Q30M PRN IV 01/08/25 11:00 Sevelamer HCl 800 mg TIDWM PO 01/08/25 12:00 01/09/25 08:24 800 MG Multivit/Ca Carb/ B Cmplx/FA/Prenat 1 tab DAILY PO 01/09/25 10:00 Calcium Acetate 667 mg TIDWMEALS PO 01/08/25 18:00 01/09/25 08:24 667 MG Acetaminophen/ Hydrocodone Bitart 1 tab Q4HP PRN PO 01/08/25 11:00 Docusate Sodium 100 mg BIDPRN PRN PO 01/08/25 11:00 Acetaminophen 650 mg Q6HP PRN PO 01/08/25 11:00 Nitroglycerin 0.4 mg Q5MINP PRN SL 01/08/25 11:00 Amlodipine Besylate 10 mg DAILY PO 01/09/25 10:00 Clonidine HCl 0.1 mg Q4HP PRN PO 01/08/25 11:00 01/08/25 18:16 0.1 MG Carvedilol 12.5 mg Q12HR PO 01/08/25 22:00 01/08/25 21:41 12.5 MG Lorazepam 1 mg ONCE PRN IV 01/08/25 14:30 Lorazepam 1 mg Q5MINP PRN IV 01/08/25 14:30 objective General: the patient is well developed and nourished. No acute distress. MENTAL STATUS: Subjective SPEECH, LANGUAGE, HIGHER CORTICAL FUNCTION: no aphasia or dysathria. CRANIAL NERVES: Pupils are equal, round and reactive. EOMs full and conjugate. No nystagmus. Facial sensation intact in all three divisions bilaterally. Mandibular strength intact. Facial muscles symmetrical and strength intact. Tongue midline. No fasciculations or atrophy. SENSATION: Sensation to touch and pinprick is normal. MOTOR: Normal tone in the upper and lower extremity. Normal muscle bulk. No fasciculations. No abnormal movements or posturing. Muscle strength of the major groups in the extremities is 5/5. REFLEXES: Deep tendon reflexes are symmetrical. No pathological reflexes. CEREBELLAR/COORDINATION: Finger to nose and heel to rangel are normal bilaterally. GAIT/STATION: deferred laboratory and microbiology Laboratory Tests 01/09/25 05:00 Test 01/09/25 05:00 Range/Units Serum Glucose 80 74-106 mg/dL Problem List New onset grand mal seizure, etiology unclear Myoclonus jerk, likely related to kidney failure Assessment/Plan Monitoring Supportive treatment Telemetry EEG, okay as outpatient Ativan for seizure breakthrough Seizure preventive treatment is not indicated at this time Seizure related driving restriction discussed Seizure related safety issues discussed Avoid street drug, alcohol Okay to discharge home from neurologic point of view More recommendation per clinical course This medical document was created using an electronic medical record system with [employer] dictation system. Although this document has been carefully reviewed, there may still be some phonetic and typographical errors. These areas are purely typographical due to imperfections of the software programs, and do not reflect any compromise in the patient's medical care. Prognosis poor Plan discussed with: Patient, Other CARLA MOHR MD Jan 09, 2025 08:49
[2025-01-09] MEDS ORDERED: B-COMPLEX W/ C & FOLIC ACID(NEPHROVITE TAB) PO SCH (10:00)
[2025-01-09] MEDS: B-COMPLEX W/ C & FOLIC ACID(NEPHROVITE TAB) PO SCH (10:02)
[2025-01-09] MEDS ORDERED: SODIUM CHL 0.9% 1000 ML BAG XX ONE (18:15)
--- NOTE | 2025-01-09 18:37 | DVHPN2 ---
Subjective 39-year-old male with a known history of end-stage renal disease on hemodialysis, hypertension initially present with the hospital with seizure-like activities found to have possibly new onset of grand mal seizure/myoclonic jerks. Changes from previous H/P or p: No Changes Eyes: No Pain, No Vision change, No Conjunctivae inflammation, No Eyelid inflammation, No Other, No Redness ENT: No Ear pain, No Ear discharge, No Nose pain, No Nose discharge, No Nose congestion, No Mouth pain, No Mouth swelling, No Throat pain, No Throat swelling, No Other Cardiovascular: No Chest Pain, No Palpitations, No Orthopnea, No Paroxysmal Noc. Dyspnea, No Edema, No Lt Headedness, No Other Respiratory: No Cough, No Dry, No Shortness of breath, No SOB with excertion, No Wheezing, No Hemoptysis, No Pleuritic Pain, No Sputum, No Other Gastrointestinal: No Nausea, No Vomiting, No Abdominal Pain, No Diarrhea, No Constipation, No Melena, No Hematochezia, No Other Genitourinary: No Dysuria, No Frequency, No Incontinence, No Hematuria, No Retention; Other (Dialysis shunt right upper) Musculoskeletal: No other, No neck pain, No shoulder pain, No arm pain, No back pain, No hand pain, No leg pain, No foot pain Skin: No Rash, No Lesions, No Jaundice, No Bruising, No Other Objective Vitals Vital Signs Date Time Temp Pulse Resp B/P (MAP) Pulse Ox O2 Delivery O2 Flow Rate FiO2 01/09/25 15:40 84 12 167/99 (121) 95 01/09/25 08:00 98.9 98.9 01/09/25 08:00 Room Air* 0 21 Exam HEENT pupils are reactive Neck is supple CV is S1-S2 regular rate and rhythm Respiratory bilateral clear. 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 Medications Current Medications Medications Dose Ordered Sig/Roxie Route Start Time Stop Time Status Last Admin Dose Admin Sodium Chloride 10 ml Q8HR IV 01/08/25 14:00 01/09/25 14:00 10 ML Ondansetron HCl 4 mg Q4HP PRN IV 01/08/25 11:00 Morphine Sulfate 2 mg Q30M PRN IV 01/08/25 11:00 Sevelamer HCl 800 mg TIDWM PO 01/08/25 12:00 01/09/25 12:24 800 MG Multivit/Ca Carb/ B Cmplx/FA/Prenat 1 tab DAILY PO 01/09/25 10:00 01/09/25 10:02 1 TAB Calcium Acetate 667 mg TIDWMEALS PO 01/08/25 18:00 01/09/25 12:24 667 MG Acetaminophen/ Hydrocodone Bitart 1 tab Q4HP PRN PO 01/08/25 11:00 Docusate Sodium 100 mg BIDPRN PRN PO 01/08/25 11:00 Acetaminophen 650 mg Q6HP PRN PO 01/08/25 11:00 Nitroglycerin 0.4 mg Q5MINP PRN SL 01/08/25 11:00 Amlodipine Besylate 10 mg DAILY PO 01/09/25 10:00 01/09/25 10:05 10 MG Clonidine HCl 0.1 mg Q4HP PRN PO 01/08/25 11:00 01/08/25 18:16 0.1 MG Carvedilol 12.5 mg Q12HR PO 01/08/25 22:00 01/09/25 10:04 12.5 MG Lorazepam 1 mg ONCE PRN IV 01/08/25 14:30 Lorazepam 1 mg Q5MINP PRN IV 01/08/25 14:30 Laboratory Results Laboratory Tests 01/09/25 05:00 Chemistry Test 01/09/25 05:00 Albumin 4.0 g/dL (3.2-4.8) Calcium Level 7.5 mg/dL (8.7-10.4) L Total Protein 6.9 g/dL (5.7-8.2) LFT Test 01/09/25 05:00 Alanine Aminotransferase (ALT) 12 U/L (7-40) Alkaline Phosphatase 54 U/L (46-116) Aspartate Amino Transferase (AST) 13 U/L (13-40) Total Bilirubin 0.5 mg/dL (0.2-1.0) Assessment/Plan Assessment/Plan 39-year-old male with a known history of end-stage renal disease on hemodialysis, hypertension in his has been with the hospital with seizure-like activities found to have 1. Grand mal seizures 2. Myoclonic jerks 3. Hyperkalemia 4. End-stage renal disease on hemodialysis 5. Hypertension -hemodialysis per renal nephrology consultation, neurology consultation. Plan discussed with: Patient Date of Service: Jan 09, 2025 Billing Provider: DEANNE PATEL MD Common Visit Codes: [id number] INP/OBS CARE(HIGH) DEANNE PATEL MD Jan 09, 2025 18:37
--- NOTE | 2025-01-09 19:02 | DVHPN2 ---
Progress Note - Dictate Date Seen: Jan 09, 2025 Medical Necessity Reason Pt with a Central, PICC or Fol: No Subjective Patient was seen and evaluated in follow up. No acute events overnight. Patient denies any complaints. No further seizure activity noted. Scheduled for dialysis today. vital signs Vital Sign Date Time Temp Pulse Resp B/P (MAP) Pulse Ox O2 Delivery O2 Flow Rate FiO2 01/09/25 15:40 84 12 167/99 (121) 95 01/09/25 08:00 98.9 98.9 01/09/25 08:00 Room Air* 0 21 medications Current Medications Medications Dose Ordered Sig/Roxie Route Start Time Stop Time Status Last Admin Dose Admin Sodium Chloride 10 ml Q8HR IV 01/08/25 14:00 01/09/25 14:00 10 ML Ondansetron HCl 4 mg Q4HP PRN IV 01/08/25 11:00 Morphine Sulfate 2 mg Q30M PRN IV 01/08/25 11:00 Sevelamer HCl 800 mg TIDWM PO 01/08/25 12:00 01/09/25 12:24 800 MG Multivit/Ca Carb/ B Cmplx/FA/Prenat 1 tab DAILY PO 01/09/25 10:00 01/09/25 10:02 1 TAB Calcium Acetate 667 mg TIDWMEALS PO 01/08/25 18:00 01/09/25 12:24 667 MG Acetaminophen/ Hydrocodone Bitart 1 tab Q4HP PRN PO 01/08/25 11:00 Docusate Sodium 100 mg BIDPRN PRN PO 01/08/25 11:00 Acetaminophen 650 mg Q6HP PRN PO 01/08/25 11:00 Nitroglycerin 0.4 mg Q5MINP PRN SL 01/08/25 11:00 Amlodipine Besylate 10 mg DAILY PO 01/09/25 10:00 01/09/25 10:05 10 MG Clonidine HCl 0.1 mg Q4HP PRN PO 01/08/25 11:00 01/08/25 18:16 0.1 MG Carvedilol 12.5 mg Q12HR PO 01/08/25 22:00 01/09/25 10:04 12.5 MG Lorazepam 1 mg ONCE PRN IV 01/08/25 14:30 Lorazepam 1 mg Q5MINP PRN IV 01/08/25 14:30 objective Vitals and nursing notes reviewed. General Appearance: In no acute distress HEENT: Atraumatic, PERRLA, EOMI, Mucous membr. moist/pink Respiratory: Normal air movement Cardiovascular: Regular rate, Normal S1, Normal S2, No murmurs Abdominal: Normal bowel sounds, Soft, No tenderness, No hepatospenomegaly, No masses Extremities: No clubbing, No cyanosis, No edema, Normal pulses, No tenderness/swelling Skin: No rashes, No breakdown, No significant lesion Neuro: Alert, Oriented X3, Normal speech, Cranial nerves 3-12 NL, Reflexes 2+ Psych/Mental Status: Mental status NL, Mood NL laboratory and microbiology Laboratory Tests 01/09/25 05:00 Test 01/09/25 05:00 Range/Units Serum Glucose 80 74-106 mg/dL Problem List New onset seizure Hypertensive urgency Methamphetamine abuse End-stage renal disease on hemodialysis Assessment/Plan Agree with current supportive medical care. HD- 01/09- UF 2 L as tolerated. Electrolyte replacement prn. Renal diet. Avoid illicit drugs, alcohol. Home medications resumed. Additional plan as per the hospital course. Plan discussed with: Patient, Other ARLETTE ALDANA DO Jan 09, 2025 19:02
[2025-01-09 19:40] VITALS: PULSE 86; RESP 13; O2SAT 97
[2025-01-09 21:17] LABS: Amphetamine Screen, Urine Neg (NEGATIVE); Barbiturate Scree,Urine Neg (NEGATIVE); Benzodiazephine Screen, Urine Neg (NEGATIVE); Cannabinoid Screen, Urine Neg (NEGATIVE); Cocaine Screen, Urine Neg (NEGATIVE); Opiate Scree,Urine Neg (NEGATIVE); Phencyclidine Screen, Urine Neg (NEGATIVE)
[2025-01-09 22:05] VITALS: PULSE 83; RESP 19; O2SAT 99
[2025-01-09] MEDS ORDERED: LISI20TA56 PO (22:12)
[2025-01-09] MEDS ORDERED: SODI10PA PO (22:12)
[2025-01-09] MEDS ORDERED: NIFE90TA75 PO (22:12)
--- NOTE | 2025-01-09 22:48 | DVHEEG2 ---
Neurology EEG Procedural Note Procedural Note EXAM DATE: 01/09/2025 REFERRING DOCTOR: Dr. Mohr TECHNIQUE: Eighteen channels of EEG, 2 channels of EOG, and 1 channel of EKG were recorded using the International 10/20 system. CLINICAL DATA: The patient was referred for an EEG evaluation for the evidence of seizure disorder. MEDICATIONS: See the chart BACKGROUND ACTIVITY: He is asleep most of the recording, during brief arousals, the background activity consisted of fairly regulated 8-9 Hz rhythmic waveforms, symmetrically distributed over both posterior quadrants and was reactive to eye opening. Was small amount of sharply contoured waveforms over both hemispheres with a left-sided more affected ACTIVATION: Hyperventilation: Not done Photic Stimulation: Not done Sleep: Noticed IMPRESSION: This is a normal EEG. No focal, lateralized, or epileptiform features are noted. If clinically indicated to rule out a seizure disorder, recommend repeat EEG with sleep deprivation. The above described sharply contoured waveform a not unequivocally considered epileptiform in nature The EKG channel showed a regular heart rate of 80 per minute [place] [address]. CARLA MOHR MD Jan 09, 2025 22:48
[2025-01-10] VITALS (10 sets, daily range): BP systolic 148–176; BP diastolic 98–124; PULSE 73–92; RESP 16–19; TEMP 36.9; O2SAT 94–100
--- NOTE | 2025-01-10 10:36 | DVHPN2 ---
Progress Note - Dictate Date Seen: Jan 10, 2025 Medical Necessity Reason Pt with a Central, PICC or Fol: No Subjective Mr. Salamanca is a 39 years old right-handed gentleman with a history of hypertension, end-stage kidney failure on hemodialysis, he was brought to the [facility] on 01/08/2025 with a chief company of seizure activity. I have seen and examined the patient, discussed with his nurse, he is doing fine, alert and fully oriented, no new seizure/new complaints WBC/HB/PLT/MCV, 01/08/2025: 5.6/10.9/161/94.3 BUN/CR, 01/08/2025: 48/10.14 GFR, 01/08/2025: 6 TSH, 01/08/25: 0.6 EEG, 01/09/2025: Unremarkable CT head, 01/08/2025: No acute intracranial abnormality MRI head, 01/08/2025: No acute cerebrovascular ischemia. Periventricular and subcortical white matter T2/FLAIR hyperintense changes which can be secondary to demyelinating disease, microvascular ischemic changes, vasculitis, other inflammatory / infectious etiologies. Recommend MRI brain with contrast to evaluate. Paranasal sinus disease. vital signs Vital Sign Date Time Temp Pulse Resp B/P (MAP) Pulse Ox O2 Delivery O2 Flow Rate FiO2 01/10/25 09:30 98.7 73 16 176/124 (141) 100 98.7 01/10/25 08:08 Room Air* 0 21 Total Intake and Output 01/09/25 01/09/25 01/10/25 14:59 22:59 06:59 Intake Total 650 ml Output Total 425 ml Balance -425 ml 650 ml medications Current Medications Medications Dose Ordered Sig/Roxie Route Start Time Stop Time Status Last Admin Dose Admin Sodium Chloride 10 ml Q8HR IV 01/08/25 14:00 01/10/25 06:12 10 ML Ondansetron HCl 4 mg Q4HP PRN IV 01/08/25 11:00 Morphine Sulfate 2 mg Q30M PRN IV 01/08/25 11:00 Sevelamer HCl 800 mg TIDWM PO 01/08/25 12:00 01/10/25 08:19 800 MG Multivit/Ca Carb/ B Cmplx/FA/Prenat 1 tab DAILY PO 01/09/25 10:00 01/10/25 09:18 1 TAB Calcium Acetate 667 mg TIDWMEALS PO 01/08/25 18:00 01/10/25 08:19 667 MG Acetaminophen/ Hydrocodone Bitart 1 tab Q4HP PRN PO 01/08/25 11:00 Docusate Sodium 100 mg BIDPRN PRN PO 01/08/25 11:00 Acetaminophen 650 mg Q6HP PRN PO 01/08/25 11:00 Nitroglycerin 0.4 mg Q5MINP PRN SL 01/08/25 11:00 Amlodipine Besylate 10 mg DAILY PO 01/09/25 10:00 01/10/25 09:18 10 MG Clonidine HCl 0.1 mg Q4HP PRN PO 01/08/25 11:00 01/10/25 06:12 0.1 MG Carvedilol 12.5 mg Q12HR PO 01/08/25 22:00 01/10/25 09:19 12.5 MG Lorazepam 1 mg ONCE PRN IV 01/08/25 14:30 Lorazepam 1 mg Q5MINP PRN IV 01/08/25 14:30 objective General: the patient is well developed and nourished. No acute distress. MENTAL STATUS: Subjective SPEECH, LANGUAGE, HIGHER CORTICAL FUNCTION: no aphasia or dysathria. CRANIAL NERVES: Pupils are equal, round and reactive. EOMs full and conjugate. No nystagmus. Facial sensation intact in all three divisions bilaterally. Mandibular strength intact. Facial muscles symmetrical and strength intact. Tongue midline. No fasciculations or atrophy. SENSATION: Sensation to touch and pinprick is normal. MOTOR: Normal tone in the upper and lower extremity. Normal muscle bulk. No fasciculations. No abnormal movements or posturing. Muscle strength of the major groups in the extremities is 5/5. REFLEXES: Deep tendon reflexes are symmetrical. No pathological reflexes. CEREBELLAR/COORDINATION: Finger to nose and heel to rangel are normal bilaterally. GAIT/STATION: deferred laboratory and microbiology Laboratory Tests 01/09/25 05:00 Test 01/09/25 05:00 Range/Units Serum Glucose 80 74-106 mg/dL Problem List New onset grand mal seizure, etiology unclear Myoclonus jerk, likely related to kidney failure Assessment/Plan Monitoring Supportive treatment Telemetry Ativan for seizure breakthrough Seizure preventive treatment is not indicated at this time Seizure related driving restriction discussed Seizure related safety issues discussed Avoid street drug, alcohol Okay to discharge home from neurologic point of view More recommendation per clinical course This medical document was created using an electronic medical record system with [employer] dictation system. Although this document has been carefully reviewed, there may still be some phonetic and typographical errors. These areas are purely typographical due to imperfections of the software programs, and do not reflect any compromise in the patient's medical care. Prognosis poor Plan discussed with: Patient, Other CARLA MOHR MD Jan 10, 2025 10:36
[2025-01-10 15:45] LABS: Chloride 98 mmol/L (98-107); Sodium 139 mmol/L (136-145)
[2025-01-10 15:46] LABS: Anion Gap 11 (5-15); Carbon Dioxide 30 mmol/L (20-31)
[2025-01-10 15:51] LABS: BUN/Creatinine Ratio 5.8 (10.0-20.0)
[2025-01-10 15:55] LABS: Blood Urea Nitrogen 67 mg/dL (9-23); Calcium 7.8 mg/dL (8.7-10.4); Glucose 120 mg/dL (74-106)
[2025-01-10 15:57] LABS: Potassium 5.6 mmol/L (3.5-5.1)
[2025-01-10] MEDS: SODIUM ZIRCONIUM CYCL 10 GM PAK PO ONE (16:24)
[2025-01-10] MEDS ORDERED: CARV-216 PO (16:38)
--- NOTE | 2025-01-10 16:42 | DVHDS2 ---
Discharge Summary Date of Admission Jan 08, 2025 at 10:34 Date of Discharge: Jan 10, 2025 Labs/Diagnostic Data: Laboratory Results Test 01/10/25 15:29 01/09/25 19:58 01/09/25 05:00 01/08/25 08:16 Sodium Level 139 mmol/L (136-145) Potassium Level 5.6 mmol/L (3.5-5.1) Chloride Level 98 mmol/L (98-107) Carbon Dioxide Level 30 mmol/L (20-31) Anion Gap 11 (5-15) Blood Urea Nitrogen 67 mg/dL (9-23) Creatinine 11.49 mg/dL (0.700-1.30) Glomerular Filtration Rate Calc 5 mL/min (>90) BUN/Creatinine Ratio 5.8 (10.0-20.0) Serum Glucose 120 mg/dL (74-106) Calcium Level 7.8 mg/dL (8.7-10.4) Urine Opiates Screen Neg (NEGATIVE) Urine Fentanyl Screen Neg (NEGATIVE) Urine Barbiturates Screen Neg (NEGATIVE) Urine Phencyclidine Screen Neg (NEGATIVE) Urine Amphetamines Screen Neg (NEGATIVE) Urine Benzodiazepines Screen Neg (NEGATIVE) Urine Cocaine Screen Neg (NEGATIVE) Urine Cannabinoids Screen Neg (NEGATIVE) White Blood Count 5.2 10^3/uL (4.4-10.8) Red Blood Count 3.33 10^6/uL (4.5-5.90) Hemoglobin 11.1 g/dL (13.5-17.5) Hematocrit 31.7 % (41.0-53.0) Mean Corpuscular Volume 95.2 fL (80.0-100.0) Mean Corpuscular Hemoglobin 33.4 pg (28.0-32.0) Mean Corpuscular Hemoglobin Concent 35.1 g/dL (32.0-36.0) Red Cell Distribution Width 13.9 % (11.8-14.3) Platelet Count 154 10^3/uL (140-450) Mean Platelet Volume 8.5 fL (6.9-10.8) Neutrophils (%) (Auto) 72.8 % (37.0-80.0) Lymphocytes (%) (Auto) 14.8 % (10.0-50.0) Monocytes (%) (Auto) 9.3 % (0.0-12.0) Eosinophils (%) (Auto) 2.3 % (0.0-7.0) Basophils (%) (Auto) 0.8 % (0.0-2.0) Neutrophils # (Auto) 3.8 10 ^3/uL (1.6-8.6) Lymphocytes # (Auto) 0.8 10 ^3/uL (0.4-5.4) Monocytes # (Auto) 0.5 10 ^3/uL (0-1.3) Eosinophils # (Auto) 0.1 10 ^3/uL (0-0.8) Basophils # (Auto) 0 10 ^3/uL (0-0.2) Nucleated Red Blood Cells 0.0 % Total Bilirubin 0.5 mg/dL (0.2-1.0) Aspartate Amino Transferase (AST) 13 U/L (13-40) Alanine Aminotransferase (ALT) 12 U/L (7-40) Alkaline Phosphatase 54 U/L (46-116) Total Protein 6.9 g/dL (5.7-8.2) Albumin 4.0 g/dL (3.2-4.8) Hepatitis B Surface Antigen Negative (Negative) Thyroid Stimulating Hormone (TSH) 0.60 uIU/mL (0.55-4.78) Other Laboratory Tests 01/10/25 15:29 01/09/25 05:00 Brief Hx & Hospital Course: 39-year-old male with a known history of end-stage renal disease on hemodialysis, hypertension in his has been with the hospital with seizure-like activities found to have suspected grand mal seizure or myoclonic jerks. Patient had hyperkalemia which was treated with a hemodialysis. Patient was seen by Neurology currently recommended not to use any seizure medication but no driving while he is having seizures. Patient needs to follow up with the PCP nephrology has been as Neurology upon discharge. Patient is being discharged under stable condition. Condition at Discharge: Stable Final Diagnosis/Problems List 39-year-old male with a known history of end-stage renal disease on hemodialysis, hypertension in his has been with the hospital with seizure-like activities found to have 1. Grand mal seizures 2. Myoclonic jerks 3. Hyperkalemia 4. End-stage renal disease on hemodialysis 5. Hypertension -hemodialysis per renal nephrology consult Discharge Disposition: Home SNF Discharge Will this Physician continue t: No Discharge Instruct/Medications Diet: Cardiac 2g Na,low cholest Diet comment: Renal diet. Activity: No Restrictions, As Tolerated Follow Up/Referral: Follow up with the PCP, Neurology, Nephrology in one week Hemodialysis per Nephrology. Medications: Carvedilol as prescribed. Continue nifedipine and Lokelma. New Medications: Carvedilol (Coreg) 12.5 Mg Tab 12.5 MG PO Q12HR for 30 Days, #60 TAB Continued Medications: Nifedipine (Nifedipine Er) 90 Mg Tab 90 MG PO DAILY Sodium Zirconium Cyclosilicate (Lokelma) 10 Gm Chencho 10 GM PO DAILY Discontinued Medications: Lisinopril (Lisinopril) 20 Mg Tab 1 TAB PO DAILY Scheduled Carvedilol (Coreg), 12.5 MG PO Q12HR Lisinopril (Lisinopril), 1 TAB PO DAILY, (Reported) Nifedipine (Nifedipine Er), 90 MG PO DAILY, (Reported) Sodium Zirconium Cyclosilicate (Lokelma), 10 GM PO DAILY, (Reported) Discharge Statement: "Patient was advised to return to the ER or call 911 if any headaches, dizziness, shortness of breath, chest pain, abdominal pain, bleeding, fevers, or worsening of medical condition. Patient was counseled about treatment plan, medications, possible side effects, patientverbalized understanding. All questions were answered to the best of my ability. This discharge took greater then 30 minutes in planning, reviewing documentation, counseling the patient, and discussing with other team members." ASSESSMENT ASSESSMENT Assessment 39-year-old male with a known history of end-stage renal disease on hemodialysis, hypertension in his has been with the hospital with seizure-like activities found to have 1. Grand mal seizures 2. Myoclonic jerks 3. Hyperkalemia 4. End-stage renal disease on hemodialysis 5. Hypertension -hemodialysis per renal nephrology consult Date of Service: Jan 10, 2025 Billing Provider: DEANNE PATEL MD Common Visit Codes: [id number] DISCH DAY >30min DEANNE PATEL MD Jan 10, 2025 16:42
--- NOTE | 2025-01-10 19:14 | DVHPN2 ---
Progress Note - Dictate Date Seen: Jan 10, 2025 Medical Necessity Reason Pt with a Central, PICC or Fol: No Subjective Patient was seen and evaluated in follow up. No acute events overnight. Patient denies any complaints. No further seizure activity noted. He has been cleared by neurologist with planned discharge home this evening. vital signs Vital Sign Date Time Temp Pulse Resp B/P (MAP) Pulse Ox O2 Delivery O2 Flow Rate FiO2 01/10/25 18:53 92 17 153/100 (117) 01/10/25 17:03 98.5 95 98.5 01/10/25 08:08 Room Air* 0 21 Total Intake and Output 01/09/25 01/09/25 01/10/25 15:00 23:00 07:00 Intake Total 650 ml Output Total 425 ml Balance -425 ml 650 ml medications Current Medications Medications Dose Ordered Sig/Roxie Route Start Time Stop Time Status Last Admin Dose Admin Sodium Chloride 10 ml Q8HR IV 01/08/25 14:00 01/10/25 14:13 10 ML Ondansetron HCl 4 mg Q4HP PRN IV 01/08/25 11:00 Morphine Sulfate 2 mg Q30M PRN IV 01/08/25 11:00 Sevelamer HCl 800 mg TIDWM PO 01/08/25 12:00 01/10/25 17:03 800 MG Multivit/Ca Carb/ B Cmplx/FA/Prenat 1 tab DAILY PO 01/09/25 10:00 01/10/25 09:18 1 TAB Calcium Acetate 667 mg TIDWMEALS PO 01/08/25 18:00 01/10/25 17:03 667 MG Acetaminophen/ Hydrocodone Bitart 1 tab Q4HP PRN PO 01/08/25 11:00 Docusate Sodium 100 mg BIDPRN PRN PO 01/08/25 11:00 Acetaminophen 650 mg Q6HP PRN PO 01/08/25 11:00 Nitroglycerin 0.4 mg Q5MINP PRN SL 01/08/25 11:00 Amlodipine Besylate 10 mg DAILY PO 01/09/25 10:00 01/10/25 09:18 10 MG Clonidine HCl 0.1 mg Q4HP PRN PO 01/08/25 11:00 01/10/25 11:56 0.1 MG Carvedilol 12.5 mg Q12HR PO 01/08/25 22:00 01/10/25 09:19 12.5 MG Lorazepam 1 mg ONCE PRN IV 01/08/25 14:30 Lorazepam 1 mg Q5MINP PRN IV 01/08/25 14:30 objective Vitals and nursing notes reviewed. General Appearance: In no acute distress HEENT: Atraumatic, PERRLA, EOMI, Mucous membr. moist/pink Respiratory: Normal air movement Cardiovascular: Regular rate, Normal S1, Normal S2, No murmurs Abdominal: Normal bowel sounds, Soft, No tenderness, No hepatospenomegaly, No masses Extremities: No clubbing, No cyanosis, No edema, Normal pulses, No tenderness/swelling Skin: No rashes, No breakdown, No significant lesion Neuro: Alert, Oriented X3, Normal speech, Cranial nerves 3-12 NL, Reflexes 2+ Psych/Mental Status: Mental status NL, Mood NL laboratory and microbiology Laboratory Tests 01/10/25 15:29 01/09/25 05:00 Test 01/10/25 15:29 Range/Units Serum Glucose 120 H 74-106 mg/dL Problem List New onset seizure Hypertensive urgency Methamphetamine abuse End-stage renal disease on hemodialysis Assessment/Plan Agree with current supportive medical care. DC planning in progress. Next dialysis due 01/11 if still admitted. Renal diet. Avoid illicit drugs, alcohol. Home medications resumed. Additional plan as per the hospital course. Plan discussed with: Patient, Other (RN) ARLETTE ALDANA DO Jan 10, 2025 19:14
== END 2025-01-10 20:36 | disposition home or self-care (01) | DRG 53 ==
LOC: EDBD 07:25 → ER 07:25 → EDUNIT# 07:25 → OVERFLOW 10:34 → ER 10:40 → TELE-WESTW 01-09 21:55
PROVIDERS: ADMIT Internal Medicine; ATTEND Internal Medicine
PROC: 5A1D70Z Performance of Urinary Filtration, Intermittent, Less than 6 Hours Per Day (ICD-10-PCS; principal; 2025-01-09)
DX: G40.409 Other generalized epilepsy and epileptic syndromes, not intractable, without status epilepticus (principal); I12.0 Hypertensive chronic kidney disease with stage 5 chronic kidney disease or end stage renal disease; N18.6 End stage renal disease; I16.0 Hypertensive urgency; F15.10 Other stimulant abuse, uncomplicated; F17.210 Nicotine dependence, cigarettes, uncomplicated; E87.5 Hyperkalemia; Z99.2 Dependence on renal dialysis; Z79.899 Other long term (current) drug therapy
CPT/HCPCS: 36415; 70450; 70551; 80048; 80053; 80307; 84443; 85025; 87081; 87340; 90935; 93005; 95819; 99291; G0378